=== PATIENT | male | born 1970 | race Caucasian/White ===

== ENCOUNTER 2021-01-31 13:40 | Emergency (ER) | payer OTHER ==
[2021-01-31] MEDS ORDERED: Potassium Chloride 20 MEQ Tab.ER PO ONE (14:07)
--- NOTE | 2021-01-31 14:15 | EDM.PDOC ---
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, worked a full week this wk (today is Sat) altho was fatigued and had to push himself sob x 2w, inc'd in past wk, sleeps on one pill no f/c/d h/o asthma PMH: asthma, htn PSH: Symbicort 160/4.5 bid, alb hfa prn, atorv 40/d, amlod 5/d, losartan 100/d, montelukast 10/d SH: lives with and 3 children and a teenage relative, none are ill, smoked THC some in past, never smoked cigs ROS: never had COVID or COVID vax has not been taking meds regularly went to walk-in, saw Karyn, CBC neg, K 3.1, LFTs inc'd (no comparison), d- dimer inc'd, COVID neg no CVD/CT/stents in past no cough, just sob no n/v, eating well, good appetite voice was hoarse x 1w for 1w, not hoarse this past week\\ CxR 2v read as possible hilar congestion per radiologist, per my read there is mild vascular congestion with perihilar prominence, air bronchograms on L, borderline cardiomegaly, no definite effusion will obtain chest CTA not taking his meds consistently in past 2w Bilateral Lower Leg Pain Score (Numeric/FACES): 10 - Related Data Allergies Allergy/AdvReac Type Severity Reaction Status Date / Time No Known Allergies Allergy Verified 01/31/21 13:49 Home Meds: Home Meds Albuterol Sulfate [Albuterol Sulfate Hfa] 2 puff IH Q4H PRN 01/31/21 [History] Budesonide/Formoterol [Symbicort 160-4.5 MCG] 2 puff INH BID 01/31/21 [History] Losartan Potassium 100 mg PO DAILY 01/31/21 [History] Montelukast [Singulair] 10 mg PO DAILY 01/31/21 [History] amLODIPine Besylate [Amlodipine Besylate] 5 mg PO DAILY 01/31/21 [History] atorvaSTATin [Lipitor] 40 mg PO BEDTIME 01/31/21 [History] hydrOXYzine HCL [Hydroxyzine HCl] 25 mg PO QID PRN 01/31/21 [History] ED ROS GENERAL - Review of Systems Review Of Systems: See Below Constitutional: Reports: No Symptoms HEENT: Reports: No Symptoms Respiratory: Reports: Shortness of Breath. Denies: Pleuritic Chest Pain, Cough, Sputum Cardiovascular: Reports: No Symptoms. Denies: Chest Pain Endocrine: Reports: No Symptoms GI/Abdominal: Reports: No Symptoms. Denies: Abdominal Pain : Reports: No Symptoms Musculoskeletal: Reports: No Symptoms Skin: Reports: No Symptoms Neurological: Reports: No Symptoms Psychiatric: Reports: No Symptoms Hematologic/Lymphatic: Reports: No Symptoms Immunologic: Reports: No Symptoms ED EXAM, GENERAL - Physical Exam Exam: See Below Exam Limited By: No Limitations General Appearance: Alert, WD/WN, No Apparent Distress, Other (muscular, alert, normal voice) Ears: Hearing Grossly Normal Head: Atraumatic, Normocephalic Neck: Normal Inspection, Supple, Non-Tender, Full Range of Motion. No: Lymphadenopathy (R), Lymphadenopathy (L) Respiratory/Chest: No Respiratory Distress, Lungs Clear, Normal Breath Sounds, Chest Non-Tender, Other (no wheeze with cough) Cardiovascular: Regular Rate, Rhythm, No Edema, No Murmur GI/Abdominal: Soft, Non-Tender, No Distention Back Exam: Normal Inspection, Full Range of Motion, NT Extremities: Normal Inspection, Normal Range of Motion, Non-Tender, No Pedal Edema Neurological: Alert, Oriented, CN II-XII Intact, Normal Cognition, Normal Gait, No Motor/Sensory Deficits Psychiatric: Normal Affect, Normal Mood Skin Exam: Warm, Dry, Intact, Normal Color, No Rash Lymphatic: No Adenopathy #1 Interpretation EKG Date: 01/31/21 Time: 14:33 Rhythm: Other (sr) Comparison: NA - No Prior EKG EKG Interpretation Comments: LAE, LVH, c/w COVID CMP, no active ischemia Course - Vital Signs Last Recorded V/S: Last Vital Signs Temp 36.6 C 01/31/21 13:40 Pulse 96 01/31/21 15:40 Resp 21 H 01/31/21 15:40 BP 148/98 H 01/31/21 15:40 Pulse Ox 95 01/31/21 15:40 - Orders/Labs/Meds Orders: Active Orders 24 hr Category Date Time Status EKG Documentation Completion [RC] ASDIRECTED Care 01/31/21 14:07 Active Telemetry Monitoring [Cardiac Monitoring] [RC] .As Care 01/31/21 15:14 Active Directed Ang Chest [CT] Stat Exams 01/31/21 14:07 Taken TROPONIN I [CHEM] Stat Lab 01/31/21 16:22 Ordered Diltiazem 125 mg Med 01/31/21 15:45 Active Sodium Chloride 0.9% [Normal Saline] 100 ml IV TITRATE EKG 12 Lead [EK] Routine Ther 01/31/21 14:07 Ordered Medication Orders Diltiazem HCl 125 mg/ Sodium (Chloride) 125 mls @ 5 mls/hr IV TITRATE RADU; Protocol Last Admin: 01/31/21 16:14 Dose: 5 mg/hr, 5 mls/hr Documented by: NILES Labs: Laboratory Tests 01/31/21 01/31/21 01/31/21 Range/Units 11:45 11:55 11:55 PT 10.1 (9.0-11.1) sec INR 0.94 L (1.00-1.24) APTT 23.2 L (24.4-33.2) SECONDS Magnesium 2.0 (1.8-2.5) mg/dL Troponin I 1299.5 H* (4.0-60.3) pg/mL C-Reactive Protein 1.4 H (0.5-0.9) mg/dL NT-Pro-B Natriuret Pep 4987 H* (<=125) pg/mL Urine Color (YELLOW) Urine Appearance (CLEAR) Urine pH (5.0-6.5) Ur Specific [place] (1.010-1.025) Urine Protein (NEGATIVE) mg/dL Urine Glucose (UA) (NORMAL) mg/dL Urine Ketones (NEGATIVE) mg/dL Urine Occult Blood (NEGATIVE) Urine Nitrite (NEGATIVE) Urine Bilirubin (NEGATIVE) Urine Urobilinogen (NEGATIVE) mg/dL Ur Leukocyte Esterase (NEGATIVE) Urine RBC (0-5) Urine WBC (0-5) Ur Epithelial Cells Urine Bacteria (NS) 01/31/21 Range/Units 14:40 PT (9.0-11.1) sec INR (1.00-1.24) APTT (24.4-33.2) SECONDS Magnesium (1.8-2.5) mg/dL Troponin I (4.0-60.3) pg/mL C-Reactive Protein (0.5-0.9) mg/dL NT-Pro-B Natriuret Pep (<=125) pg/mL Urine Color Yellow (YELLOW) Urine Appearance Clear (CLEAR) Urine pH 7.0 H (5.0-6.5) Ur Specific [place] 1.010 (1.010-1.025) Urine Protein Trace (NEGATIVE) mg/dL Urine Glucose (UA) Normal (NORMAL) mg/dL Urine Ketones Negative (NEGATIVE) mg/dL Urine Occult Blood Negative (NEGATIVE) Urine Nitrite Negative (NEGATIVE) Urine Bilirubin Negative (NEGATIVE) Urine Urobilinogen 1 H (NEGATIVE) mg/dL Ur Leukocyte Esterase Negative (NEGATIVE) Urine RBC 0-5 (0-5) Urine WBC 0-5 (0-5) Ur Epithelial Cells Occasional Urine Bacteria Rare H (NS) Meds: Medications Generic Name Dose Route Start Last Admin Trade Name Freq PRN Reason Stop Dose Admin Diltiazem HCl 125 mg/ Sodium 125 mls @ 5 mls/hr 01/31/21 15:45 01/31/21 16:14 Chloride IV 5 mg/hr TITRATE RADU 5 mls/hr Administration Protocol 5 MG/HR Discontinued Medications Generic Name Dose Route Start Last Admin Trade Name Freq PRN Reason Stop Dose Admin Aspirin 324 mg 01/31/21 15:13 01/31/21 15:23 Aspirin 81 Mg Tab.Chew PO 01/31/21 15:14 324 mg ONETIME ONE Administration Diltiazem HCl 20 mg 01/31/21 15:13 01/31/21 15:24 Diltiazem 25 Mg/5 Ml Sdv IVPUSH 01/31/21 15:14 20 mg ONETIME ONE Administration Furosemide 20 mg 01/31/21 15:40 01/31/21 16:02 Furosemide 20 Mg/2 Ml Vial IVPUSH 01/31/21 15:41 20 mg ONETIME ONE Administration Iopamidol 90 ml 01/31/21 14:35 01/31/21 14:48 Iopamidol 755 Mg/Ml 100 Ml Bottle IV 01/31/21 14:36 90 ml . 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, still with EKG with LAE and probable LVH, no comparison, no active ischemia BNP 40x ULN, trop 22x ULN PT, PTT pending no clinical concern for CAD or CT or active ischemia will try to control HR and BP to decrease afterload, dilt 20 mg IV, will add dilt drip d/w Dr Paniagua at [facility] who accepted pt, 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 chest CTA to [facility] for reading 01/31/21 16:22 pt states he drinks 2-3 beers/d, not every day, "helps me relax" PT and PTT neg inc'd LFTs may be passive liver congestion, fatty liver and alc hepatitis considerations RR inc'd up to 22, now down to 18 on O2 2 l/min will obtain a repeat trop HR dec'd 10 and SBP dec'd 20 after dilt 20 mg IV, dilt drip being hung waiting for bed assignment 01/31/21 16:44 bed aside made 2nd trop pending chest CTA with no PE, cadiomegaly, diffuse edema, small b/l pleural effusions, bulla in lateral aspect RLL, as per radiologist ground glass opacities appreciated as pt has never smoked nicotine, it is somewhat doubtful that he has bulla in RLL, ground glass opacities from prior unresolved COVID would be a consideration Departure - Departure Time of Disposition: 15:07 Disposition: DC/Tfer to Acute Hospital 02 Condition: Good Clinical Impression: Cardiomyopathy, Pulmonary edema, Elevated brain natriuretic peptide (BNP) level, Elevated troponin, Elevated liver function tests, Elevated d-dimer, Elevated C-reactive protein (CRP), Hypokalemia, Elevated blood pressure reading - Discharge Information *PRESCRIPTION DRUG MONITORING PROGRAM REVIEWED*: Not Applicable *COPY OF PRESCRIPTION DRUG MONITORING REPORT IN PATIENT MEGHAN: Not Applicable Referrals: Binta Mcduffie NP [Primary Care Provider] - Sepsis Event Note (ED) - Evaluation Sepsis Screening Result: No Definite Risk - Focused Exam Vital Signs: Vital Signs Temp Pulse Resp BP Pulse Ox 01/31/21 15:40 96 21 H 148/98 H 95 01/31/21 15:24 97 21 H 159/109 H 96 01/31/21 13:40 36.6 C 104 H 18 168/107 H 100 - My Orders Last 24 Hours: My Active Orders 01/31/21 14:07 EKG Documentation Completion [RC] ASDIRECTED Ang Chest [CT] Stat EKG 12 Lead [EK] Routine 01/31/21 15:14 Telemetry Monitoring [Cardiac Monitoring] [RC] .As Directed 01/31/21 15:45 Diltiazem 125 mg Sodium Chloride 0.9% [Normal Saline] 100 ml IV TITRATE 01/31/21 16:22 TROPONIN I [CHEM] Stat - Assessment/Plan Last 24 Hours: My Active Orders 01/31/21 14:07 EKG Documentation Completion [RC] ASDIRECTED Ang Chest [CT] Stat EKG 12 Lead [EK] Routine 01/31/21 15:14 Telemetry Monitoring [Cardiac Monitoring] [RC] .As Directed 01/31/21 15:45 Diltiazem 125 mg Sodium Chloride 0.9% [Normal Saline] 100 ml IV TITRATE 01/31/21 16:22 TROPONIN I [CHEM] Stat
[2021-01-31] MEDS ORDERED: Iopamidol 755 Mg/ML 100 ML Bottle IV ONE (14:35)
[2021-01-31] MEDS ORDERED: Diltiazem 25 MG/5 ML SDV IVPUSH ONE (15:13)
[2021-01-31] MEDS ORDERED: Aspirin 81 MG Tab.Chew PO ONE (15:13)
[2021-01-31] MEDS ORDERED: Furosemide 20 MG/2 ML VIAL IVPUSH ONE (15:40)
[2021-01-31] MEDS ORDERED: Diltiazem 125 MG in Sodium Chloride 0.9% 100 ML IV SCH (15:45)
[2021-01-31] MEDS ORDERED: Sodium Chloride 0.9% 500 ML IV ONE (16:20)
== END 2021-01-31 17:15 ==
LOC: FB.ED 13:40
DX: J81.1 Chronic pulmonary edema (principal); R79.89 Other specified abnormal findings of blood chemistry; I42.9 Cardiomyopathy, unspecified; R79.82 Elevated C-reactive protein (CRP); E87.6 Hypokalemia; R03.0 Elevated blood-pressure reading, without diagnosis of hypertension; Z79.899 Other long term (current) drug therapy
CPT/HCPCS: 36415; 71275; 81001; 83735; 83880; 84484; 85610; 85730; 86140; 93005; 96365; 96375; 96376; 99285; 99285-25; A9270-GY; J1940; J3490; J7040; Q9967